=== PATIENT | female | born 1990 | race Two or more races ===

== ENCOUNTER 2018-01-13 13:30 | Emergency (ER) | payer MEDICAID ==
[~2018-01-13] VITALS: Ht 157.5 cm; Wt 53.5 kg
[2018-01-13] MEDS ORDERED: METHOCARBAMOL 750 MG TABLET ONE (13:56)
[2018-01-13] MEDS ORDERED: KETOROLAC 30 MG/1 ML ONE (13:57)
[2018-01-13] MEDS ORDERED: KETOROLAC 30 MG/1 ML IM ONE (14:00)
[2018-01-13] MEDS ORDERED: METHOCARBAMOL 750 MG TABLET PO ONE (14:00)
[2018-01-13 14:20] LABS: MICROSCOPIC NOT IND
[2018-01-13 14:22] LABS: CULTURE INDICATED? NO
[2018-01-13 14:58] VITALS: BP 106/67
== END 2018-01-13 15:01 | disposition home or self-care (01) ==
LOC: ED 14:55
DX: S39.012A Strain of muscle, fascia and tendon of lower back, initial encounter (principal); X50.9XXA Other and unspecified overexertion or strenuous movements or postures, initial encounter; Y99.8 Other external cause status; Y93.89 Activity, other specified; Y92.89 Other specified places as the place of occurrence of the external cause
CPT/HCPCS: 81003; 96372; 99283; J1885